=== PATIENT | male | born 1980 | race Caucasian/White ===

== ENCOUNTER → 2025-06-25 09:09 | Outpatient (REF) | payer OTHER, SELFPAY ==
--- NOTE | 2025-06-25 10:42 | CARDSERVLU ---
Echocardiogram with Lumason completed after protocol screening completed. Allergies verified.
Patent IV site: Right median antecubital inserted by Odessa Chatterjee RN
IV site flushed with 0.9% NaCl pre and post administration.
Diluted bolus method utilized to enhance visualization of ventricular villafana.
Total volume given: __5__ mL
Patient tolerated all procedures well without complications.
Heplock D/C ed at 1041, site clear, no redness, no edema. Pressure held, no bleeding,2x2 applied and taped. Pt offers no complaints.
== END ==
LOC: RCS 09:09
PROVIDERS: ATTENDING PHYSICIAN Internal Medicine Cardiovascular Disease; FAMILY PHYSICIAN Family Medicine
DX: R06.09 Other forms of dyspnea (principal)
CPT/HCPCS: 93017; 93350; Q9950